=== PATIENT | male | born 1980 | race African-American/Black ===

== ENCOUNTER 2024-02-25 09:01 | Inpatient (IN) | payer OTHER ==
[~2024-02-25] VITALS: Ht 182.9 cm; Wt 151.4 kg
[2024-02-25 09:43] LABS: BASOPHILS % (AUTO) 0.8 % (0.0-2.0); EOSINOPHILS % (AUTO) 0.5 % (1.0-6.0); HEMATOCRIT 49.3 % (41-53); HEMOGLOBIN 15.9 g/dL (13.5-17.5); LYMPHOCYTES # (AUTO) 1.5 K/uL (1.0-4.8); LYMPHOCYTES % (AUTO) 23.4 % (22.0-44.0); MEAN CORPUSCULAR HEMOGLOBIN 29.6 pg (26.0-34.0); MEAN CORPUSCULAR HGB CONC 32.3 G/dL (31.0-37.0); MEAN CORPUSCULAR VOLUME 92 fL (80-100); MONOCYTES # (AUTO) 0.8 K/uL (0.1-1.0); MONOCYTES % (AUTO) 12.3 % (2.0-9.0); PLATELET COUNT (AUTO) 213 K/uL (150-450); RED BLOOD CELL COUNT(AUTO) 5.38 MIL/uL (4.50-5.90); RED CELL DISTRIBUTION WIDTH 13.8 % (11.5-14.5); WHITE BLOOD COUNT (AUTO) 6.3 K/uL (4.5-11.0)
[2024-02-25 09:55] LABS: LACTIC ACID 1.7 mmol/L (0.4-2.0)
[2024-02-25] MEDS ORDERED: PANT-31 PO (09:59)
[2024-02-25] MEDS ORDERED: ARIP15TA27 PO (09:59)
[2024-02-25] MEDS ORDERED: ARIP10TA38 PO (09:59)
[2024-02-25] MEDS ORDERED: DICY20TA95 PO (09:59)
[2024-02-25] MEDS ORDERED: LEVAHFA IH (09:59)
[2024-02-25] MEDS ORDERED: PROP10TA73 PO (09:59)
[2024-02-25] MEDS ORDERED: ROSU20TA98 PO (09:59)
[2024-02-25] MEDS ORDERED: SEMA1PEN3 SQ (09:59)
[2024-02-25] MEDS ORDERED: HYDR25TA2 PO (09:59)
[2024-02-25] MEDS ORDERED: FLUO-418 PO (09:59)
[2024-02-25] MEDS ORDERED: PRAZ5 PO (09:59)
[2024-02-25 10:02] LABS: ANION GAP 11 mmol/L (8-16); CARBON DIOXIDE 28 mmol/L (22-29); CHLORIDE 100 mmol/L (98-107); GLOMERULAR FILTR. RATE CALC > 60 mL/min (>60); GLUCOSE,RANDOM 110 mg/dL (70-110); POTASSIUM 3.4 mmol/L (3.5-5.1); SODIUM SERUM 139 mmol/L (136-145); UREA NITROGEN, BLOOD 10 mg/dL (7-18)
[2024-02-25 10:04] LABS: ALANINE AMINOTRANSFERASE 58 U/L (12-78); ALBUMIN 3.5 g/dL (3.4-5.0); ALKALINE PHOSPHATASE 87 U/L (46-116); ASPARTATE AMINOTRANSFERASE 34 U/L (15-37); BILIRUBIN,TOTAL 0.8 mg/dL (0.1-1.0); LIPASE 32 U/L (16-77); TOTAL PROTEIN, SERUM 7.2 g/dL (6.4-8.2)
[2024-02-25 10:17] LABS: TROPONIN I-HIGH SENSITIVITY 80 ng/L (<76)
[2024-02-25] MEDS: ONDANSETRON HCL 4 MG/2 ML VIAL IVP ONE ×2 (10:42→13:21)
[2024-02-25] MEDS: SODIUM CHLORIDE 0.9% 1,000 ML IV ONE ×2 (10:42→10:43)
[2024-02-25] MEDS: MORPHINE SULFATE 4 MG/ML SYRINGE IVP ONE (10:43)
[2024-02-25] MEDS: LISINOPRIL 10 MG TABLET PO SCH (12:00)
[2024-02-25] MEDS ORDERED: ZOLPIDEM TARTRATE 5 MG TABLET PO PRN (12:00)
[2024-02-25] MEDS ORDERED: OxyCODONE HCL/ACETAMINOPHEN 5-325 MG TABLET PO PRN (12:00)
[2024-02-25] MEDS ORDERED: ACETAMINOPHEN 325 MG TABLET PO PRN (12:00)
[2024-02-25 12:17] LABS: TROPONIN I-HIGH SENSITIVITY 63 ng/L (<76)
[2024-02-25 12:54] LABS: APPEARANCE,URINE HAZY (CLEAR); BILIRUBIN,URINE NEGATIVE (NEGATIVE); COLOR,URINE YELLOW (YELLOW); GLUCOSE, URINE (UA) NEGATIVE (NEGATIVE); LEUKOCYTE ESTERASE ,URINE NEGATIVE (NEGATIVE); NITRATE,URINE NEGATIVE (NEGATIVE); OCCULT BLOOD,URINE NEGATIVE (NEGATIVE); PH,URINE 7.5 (5.0-8.0); PH,URINE DRUG SCREEN 7.5 (5.0-8.0); PROTEIN,URINE 30-70 mg/dL (NEGATIVE); SPECIFIC GRAVITIY, URINE 1.026 (1.003-1.030); UROBILINOGEN,URINE <=1.0 mg/dL (<=1.0)
[2024-02-25 12:58] LABS: BACTERIA,URINE None Seen /HPF (None Seen); RBC,URINE None Seen /HPF (0-2); WBC,URINE None Seen /HPF (0-5)
[2024-02-25] MEDS ORDERED: IOHEXOL 350 MG/ML 100 ML VIAL ONE ×2 (12:59→14:00)
[2024-02-25] MEDS ORDERED: SODIUM CHLORIDE 0.9% 100 ML ONE (12:59)
[2024-02-25 13:01] LABS: ALCOHOL, URINE DRUG SCREEN NEGATIVE (NEGATIVE); AMPHET/METH SCREEN,URINE NEGATIVE (NEGATIVE); BARBITURATE SCREEN, URINE NEGATIVE (NEGATIVE); BENZODIAZEPINES SCREEN,URINE NEGATIVE (NEGATIVE); CANNABINOID SCREEN,URINE NEGATIVE (NEGATIVE); COCAINE SCREEN,URINE NEGATIVE (NEGATIVE); METHADONE SCREEN, URINE NEGATIVE (NEGATIVE); OPIATE SCREEN,URINE POSITIVE (NEGATIVE); PHENCYCLIDINE SCREEN,URINE NEGATIVE (NEGATIVE)
[2024-02-25] MEDS: PANTOPRAZOLE SODIUM 40 MG/VIAL IVP SCH (13:21)
[2024-02-25] MEDS: HYDROmorphone HCL 2 MG/ML SYRINGE IVP ONE (13:22)
[2024-02-25] MEDS: POTASSIUM CHLORIDE 20 MEQ ER TABLET PO ONE ×2 (13:44→22:01)
[2024-02-25] MEDS: IOHEXOL 9 MG/ML 500 ML BOTTLE PO ONE (14:00)
[2024-02-25] MEDS: HEPARIN SODIUM,PORCINE 5,000 UNITS/ML VIAL SQ SCH (16:00)
[2024-02-25 20:30] VITALS: BP 117/57; PULSE 62; RESP 18; TEMP 98.2; O2SAT 99
[2024-02-25] MEDS: DOCUSATE SODIUM 100 MG CAPSULE PO SCH (20:44)
[2024-02-26 05:02] VITALS: BP 134/90; PULSE 70; RESP 20; TEMP 97.9; O2SAT 96
[2024-02-26] MEDS: MAGNESIUM HYDROXIDE SUSPENSION 30 ML UDCUP PO PRN (06:44)
[2024-02-26 08:26] VITALS: BP 145/85; PULSE 73; RESP 18; TEMP 98; O2SAT 97
[2024-02-26] MEDS ORDERED: PANTOPRAZOLE SODIUM 40 MG/VIAL IVP SCH (09:00)
[2024-02-26] MEDS: ONDANSETRON HCL 4 MG/2 ML VIAL IVP PRN (12:55)
[2024-02-26 13:04] VITALS: BP 116/82; PULSE 72; RESP 20; TEMP 98.2; O2SAT 98
[2024-02-26] MEDS: MORPHINE SULFATE 2 MG/ML SYRINGE IVP PRN (13:04)
[2024-02-26] MEDS: METOCLOPRAMIDE HCL 5 MG/ML 2 ML VIAL IVP PRN (14:12)
[2024-02-26 16:00] VITALS: BP 126/72; PULSE 71; RESP 20; TEMP 98; O2SAT 98
[2024-02-26] MEDS: DiphenhydrAMINE HCL 50 MG/ML VIAL IVP ONE (16:31)
[2024-02-26 20:00] VITALS: BP 132/89; PULSE 83; RESP 18; TEMP 98.6; O2SAT 99
[2024-02-26] MEDS ORDERED: DEXTROSE 5%-0.45% SODIUM CHL 1,000 ML IV PRN (23:55)
[2024-02-27] MEDS: SODIUM CHLORIDE 0.9% 1,000 ML IV ONE (10:30)
[2024-02-27 10:31] VITALS: BP 108/79; PULSE 71; RESP 20; TEMP 98.1; O2SAT 97
[2024-02-27] MEDS ORDERED: LIDOCAINE/PF 2% 5 ML VIAL IM ONE (12:00)
[2024-02-27] MEDS ORDERED: PROPOFOL 1% 20 ML VIAL IVP ONE (12:00)
[2024-02-27] MEDS ORDERED: SODIUM CHLORIDE 0.9% 1,000 ML ONE (12:40)
[2024-02-27 20:00] VITALS: BP 109/78; PULSE 99; RESP 18; TEMP 97.8; O2SAT 95
[2024-02-27] MEDS: PANTOPRAZOLE SODIUM 40 MG DR TABLET PO SCH (20:31)
[2024-02-28 08:22] VITALS: BP 148/83; PULSE 78; RESP 20; TEMP 98.3; O2SAT 95
== END 2024-02-28 20:15 | DRG 392 ==
LOC: EMS 09:01 → EDH 11:58 → 6S 20:29
PROVIDERS: ADMIT Internal Medicine; ATTEND Internal Medicine
PROC: 0DB98ZX Excision of Duodenum, Via Natural or Artificial Opening Endoscopic, Diagnostic (ICD-10-PCS; principal; 2024-02-27 15:00)
DX: K21.00 Gastro-esophageal reflux disease with esophagitis, without bleeding (principal); E44.0 Moderate protein-calorie malnutrition; Z68.42 Body mass index [BMI] 45.0-49.9, adult; E66.01 Morbid (severe) obesity due to excess calories; I12.9 Hypertensive chronic kidney disease with stage 1 through stage 4 chronic kidney disease, or unspecified chronic kidney disease; E87.6 Hypokalemia; N18.9 Chronic kidney disease, unspecified; J44.9 Chronic obstructive pulmonary disease, unspecified; K26.9 Duodenal ulcer, unspecified as acute or chronic, without hemorrhage or perforation; K44.9 Diaphragmatic hernia without obstruction or gangrene; N18.2 Chronic kidney disease, stage 2 (mild); R79.89 Other specified abnormal findings of blood chemistry; F32.A Depression, unspecified; G47.33 Obstructive sleep apnea (adult) (pediatric); K59.03 Drug induced constipation; T40.605A Adverse effect of unspecified narcotics, initial encounter; Z88.6 Allergy status to analgesic agent; Z91.51 Personal history of suicidal behavior
CPT/HCPCS: 71045; 74018; 74177; 80048; 80076; 80307; 81001; 82533; 83605; 83690; 84132; 84484; 85025; 87081; 88305; 93005; 99285; C9113; J1170; J1200; J1644; J2270; J2405; J2704; J2765; J3490; J7030; J7050; 36415-L1; 36415-TC